=== PATIENT | female | born 1955 | race Caucasian/White ===

== ENCOUNTER 2016-09-21 13:36 | Outpatient (CLI) ==
[2016-09-21 13:46] VITALS: BMI 51.2
== END 2016-09-21 13:37 ==
LOC: AMBL 13:36
PROVIDERS: ATTEND Emergency Medicine
DX: R06.02 Shortness of breath (principal); R06.2 Wheezing; J44.9 Chronic obstructive pulmonary disease, unspecified

== ENCOUNTER 2016-09-21 13:45 | Emergency (ER) ==
[2016-09-21 13:46] VITALS: BMI 51.2
[2016-09-21 14:01] VITALS: BP 118/67; TEMP 98.8
--- NOTE | 2016-09-21 14:14 | ED.PDOC ---
General ED Provider: Dr. LUCAS JACKSON JR Chief Complaint: Shortness of Air Stated Complaint: SOA. Wheezes. Onset 3 days ago. Used nebulizer et proventil inhaler at home. States has been babysitting grandchildren who have strep throat. No sore throat. productive cough, clear to yellow phlegm.[ End ]98.8 678 24 96% 118/67 10 Time Seen by Physician: 14:14 Information Source: Patient Exam Limitations: No limitations Primary Care Provider: ANJUM OVALLE Nursing and Triage Documentation Reviewed and Agree: No Review of Systems - Review Of Systems Constitutional: Reports: No symptoms Eyes: Reports: No symptoms Ears, Nose, Mouth, Throat: Reports: No symptoms Respiratory: Reports: Short of air, Wheezing Cardiac: Reports: No symptoms GI: Reports: No symptoms : Reports: No symptoms Musculoskeletal: Reports: Muscle pain Skin: Reports: No symptoms Neurological: Reports: No symptoms Endocrine: Reports: No symptoms Hematologic/Lymphatic: Reports: No symptoms All Other Systems: Other Past Medical History - Past Medical History Previously Healthy: No Endocrine: Reports: None, Dyslipidemia Cardiovascular: Reports: CAD (s/p stent x 2 ), [place], Hypertension, CHF, A-Fib Respiratory: Reports: COPD, Asthma Hematological: Reports: None Gastrointestinal: Reports: None Genitourinary: Reports: None Neuro/Psych: Reports: None, Migraine Musculoskeletal: Reports: Arthritis, Other (CHRONIC KNEE PAIN; oa knees ) Cancer: Reports: None Last Menstrual Period: unknown - Surgical History General Surgical History: Reports: Cholecystectomy, Pacemaker ( defib ), Orthopedic, Other (defib/pacemaker) - Family History Family History: Reports: Unknown - Social History Smoking Status: Never smoker Hx Substance Use: No Alcohol Screening: None Physical Exam - Physical Exam Appearance: Ill-appearing Ill-appearing: Mild Pain Distress: Mild Eyes: CLEVE, EOMI, Conjunctiva clear ENT: Ears normal, Nose normal, Oropharynx normal Neck: Supple Respiratory: Airway patent, Rhonchi Cardiovascular: RRR, Pulses normal, No rub, No murmur GI/: Soft, Nontender, No masses, Bowel sounds normal, No Organomegaly Musculoskeletal: Normal strength, ROM intact, No edema, No calf tenderness Skin: Warm, Dry, Normal color Neurological: Sensation intact, Motor intact, Reflexes intact, Cranial nerves intact, Alert, Oriented Psychiatric: Affect appropriate, Mood appropriate Interpretation - Radiology Interpretation Radiology Interpretation By: Radiologist Exam Interpreted: CXR Xray Comments: no acute- consistent with pulmonary fibrosis Critical Care Note - Critical Care Note Total Time (mins): 5 Course - Course Hematology/Chemistry: 09/21/16 14:45 09/21/16 14:45 Orders, Labs, Meds: Lab Review 09/21/16 09/21/16 14:37 14:45 WBC 6.63 RBC 4.29 Hgb 12.5 Hct 39.0 MCV 90.9 MCH 29.1 MCHC 32.1 RDW Coeff of Doc 15.9 H Plt Count 119 L Immature Gran % (Auto) 0.3 Neut % (Auto) 72.7 Lymph % (Auto) 13.3 [place] % (Auto) 6.3 Eos % (Auto) 6.9 Baso % (Auto) 0.5 Immature Gran # (Auto) 0.0 Neut # 4.8 Lymph # 0.9 [place] # 0.4 Eos # 0.5 Baso # 0.0 Sodium 139 Potassium 4.2 Chloride 105 Carbon Dioxide 27 Anion Gap 11.2 BUN 13 Creatinine 0.95 Estimated GFR (MDRD) 60.00 BUN/Creatinine Ratio 13.68 Glucose 117 H Calcium 8.9 Total Bilirubin 1.21 H AST 20 ALT 11 L Alkaline Phosphatase 61 Total Protein 7.1 Albumin 3.3 L Globulin 3.8 Albumin/Globulin Ratio 0.87 Influenza A (Rapid) Positive H Influenza B (Rapid) Negative Orders Category Date Time Status NEBULIZER TREATMENT Stat CARDIO 09/21/16 14:18 Completed NEBULIZER TREATMENT Stat CARDIO 09/21/16 15:50 Completed CBC W/ AUTO DIFF Stat LAB 09/21/16 14:45 Completed COMPREHENSIVE METABOLIC PANEL Stat LAB 09/21/16 14:45 Completed MOLECULAR GROUP A STREP Stat LAB 09/21/16 14:37 Completed RAPID FLU A/B Stat LAB 09/21/16 14:37 Completed SPUTUM CULTURE Stat LAB 09/21/16 16:10 Completed STREP SCREEN Stat LAB 09/21/16 14:37 Completed Ipratropium/Albuterol Neb [Duoneb] MEDS 09/21/16 14:17 Discontinued 1 vial NEB ONCE STA Ipratropium/Albuterol Neb [Duoneb] MEDS 09/21/16 15:50 Discontinued 1 vial NEB ONCE STA Methylprednisolone Sod Succ/Pf [Solu-Medrol 125 mg] MEDS 09/21/16 14:17 Discontinued 125 mg IM ONCE STA CHEST, 2 VIEWS PA & LAT Stat RADS 09/21/16 14:31 Completed Medications Discontinued Medications Generic Name Dose Route Start Last Admin Trade Name Freq PRN Reason Stop Dose Admin Albuterol/Ipratropium 1 vial 09/21/16 14:17 09/21/16 14:25 Duoneb NEB 09/21/16 14:18 1 vial ONCE STA Administration Albuterol/Ipratropium 1 vial 09/21/16 15:50 09/21/16 16:02 Duoneb NEB 09/21/16 15:51 1 vial ONCE STA Administration Methylprednisolone Sodium Succinate 125 mg 09/21/16 14:17 09/21/16 14:41 Solu-Medrol 125 Mg IM 09/21/16 14:18 125 mg ONCE STA Administration Vital Signs: Temp Pulse Resp BP Pulse Ox 09/21/16 13:49 98.8 F 67 24 118/67 96 Departure - Departure Time of Disposition: 15:59 Disposition: HOME SELF-CARE Discharge Problem: COPD exacerbation, Influenza A Instructions: COPD (Chronic Obstructive Pulmonary Disease) (ED), Influenza (ED) Condition: Fair Pt referred to PMD for follow-up: Yes Additional Instructions: copd exacerbation can be due to viruses bacteria or environmental exposures avoid smoke and chemicals may use Tamiflu for influenza may decrease length of flu symptoms recommend antibiotic continue nebulizer may use over the counter cough medication - Robitussin with codeine is prescribed Prescriptions: Oseltamivir Phosphate [Tamiflu] 75 mg PO Q12HR #10 capsule Sulfamethoxazole/Trimethoprim [Bactrim Ds Tablet] 1 tab PO Q12HR #20 tablet Guaifenesin/Codeine Phosphate [Robitussin AC Syrup] 10 ml PO Q6H PRN #240 ml PRN Reason: Cough Ipratropium/Albuterol Neb [Duoneb] 1 vial NEB RTQ6H PRN #90 vial.neb PRN Reason: Wheezing Allergies/Adverse Reactions: Allergies lisinopril Adverse Reaction (Verified 06/24/16 06:33) Swelling Penicillins Adverse Reaction (Verified 06/24/16 06:33) Itching Home Medications: Ambulatory Orders Spironolactone 25 mg PO QAM 06/03/13 Albuterol Sulfate 0.083% Neb [Albuterol 0.083% Neb] 1 vial INH BID 01/30/16 Carvedilol [Coreg] 12.5 mg PO BIDWM 01/30/16 Aspirin [Aspirin EC] 81 mg PO DAILYWM 02/20/16 Albuterol Sulfate [Proair Hfa] 2 puff IH QID PRN 03/07/16 Guaifenesin/Codeine Phosphate [Robitussin AC Syrup] 10 ml PO Q6H PRN #240 ml Ipratropium/Albuterol Neb [Duoneb] 1 vial NEB RTQ6H PRN #90 vial.neb 09/21/16 Losartan Potassium [Cozaar] 25 mg PO DAILY 09/21/16 Oseltamivir Phosphate [Tamiflu] 75 mg PO Q12HR #10 capsule 09/21/16 Sulfamethoxazole/Trimethoprim [Bactrim Ds Tablet] 1 tab PO Q12HR #20 tablet
[2016-09-21] MEDS ORDERED: DUONEB NEB STA ×2 (14:17→15:50)
[2016-09-21] MEDS ORDERED: SOLU-MEDROL 125 MG IM STA (14:17)
[2016-09-21 14:53] LABS: BASOPHILS % (AUTO) 0.5 % (0.0-3.0); EOSINOPHILS # (AUTO) 0.5 K/ul (0.0-0.7); EOSINOPHILS % (AUTO) 6.9 % (0.0-7.0); HEMOGLOBIN 12.5 g/dl (12.0-16.0); IMMATURE GRANULOCYTE % (AUTO) 0.3 % (0.0-5.0); LYMPHOCYTES # (AUTO) 0.9 K/uL (0.60-3.4); LYMPHOCYTES % (AUTO) 13.3 (10.0-50.0); MEAN CORPUSCULAR HEMOGLOBIN 29.1 pg (27.0-31.0); MEAN CORPUSCULAR HGB CONC 32.1 (31.8-35.4); MEAN CORPUSCULAR VOLUME 90.9 fl (81.0-99.0); MONOCYTES # (AUTO) 0.4 K/uL (0.4-2.0); MONOCYTES % (AUTO) 6.3 (0-10); NEUTROPHILS # (AUTO) 4.8 K/ul (2.0-6.9); NEUTROPHILS % (AUTO) 72.7; PLATELET COUNT 119 10^3/uL (140-440); RED BLOOD COUNT 4.29 10^6/ul (4.20-5.40); WHITE BLOOD COUNT 6.63 K/ul (4.6-10.2)
--- NOTE | 2016-09-21 15:08 | DI ---
EXAM: PA and lateral views of the chest HISTORY: Cough. COMPARISON: Chest x-ray 06/24/2016 FINDINGS: The cardiomediastinal silhouette is unchanged with stable lead wires and generator pack. There is no pneumothorax. There is blunting left costophrenic angle which is unchanged. There is no acute consolidation, nodule or mass. The osseous structures are unremarkable. IMPRESSION: No acute cardiopulmonary process with chronic blunting left costophrenic angle consiste nt with pleural parenchymal fibrosis.
[2016-09-21 15:12] LABS: ALBUMIN 3.3 g/dL (3.4-5.0); ALBUMIN/GLOBULIN RATIO 0.87; ANION GAP 11.2; BILIRUBIN,TOTAL 1.21 mg/dL (0.00-1.20); BUN/CREATININE RATIO 13.68; CALCIUM 8.9 mg/dL (8.2-10.2); CREATININE 0.95 mg/dL (0.60-1.30); POTASSIUM 4.2 mmol/L (3.5-5.10); TOTAL PROTEIN 7.1 g/dL (5.8-8.1)
[2016-09-21 15:54] LABS: FLU INTERNAL QC INTERNAL QC VALID; RAPID FLU A POSITIVE (NEGATIVE); RAPID FLU B NEGATIVE (NEGATIVE)
== END 2016-09-21 17:00 | disposition home or self-care (01) ==
LOC: ED 13:45
DX: J09.X2 Influenza due to identified novel influenza A virus with other respiratory manifestations (principal); J44.1 Chronic obstructive pulmonary disease with (acute) exacerbation; Z79.899 Other long term (current) drug therapy
CPT/HCPCS: 36415; 80053; 85025; 87070; 87651; 87804; 87880; 94640; 96372; 99283

== ENCOUNTER 2016-12-04 21:50 | Outpatient (CLI) | END 2016-12-04 21:51 | LOC: AMBL 21:50 | PROVIDERS: ATTEND Family Medicine ==